=== PATIENT | male | born 1980 | race Caucasian/White ===

== ENCOUNTER → 2021-02-17 | Outpatient (CLI) | payer OTHER ==
--- NOTE | 2021-02-17 10:15 | Diagnostic Imaging Report ---
INDICATION: Low back pain. TIME OF EXAM: 10:07 a.m. Three views of the lumbar spine were obtained. Curvature and alignment is normal. Vertebral body heights and disc spaces are well-maintained. No fracture or subluxation is identified. IMPRESSION: No acute bony abnormality is detected. Dictated by: Dictated on workstation # [id number]
--- NOTE | 2021-02-17 10:39 | Diagnostic Imaging Report ---
Indication: Bilateral foot pain. TIME OF EXAM: 10:10 AM 2 views of each foot were obtained. Metatarsals and phalanges appear to be intact. Midfoot and hindfoot are unremarkable. No fractures are seen. No stress reaction is identified. IMPRESSION: No acute abnormalities detected. Dictated by: Dictated on workstation # [id number]
== END ==
LOC: RAD 09:17
PROVIDERS: ATTEND Family Medicine
DX: Z02.71 Encounter for disability determination (principal); M54.5 Low back pain; M79.672 Pain in left foot; M79.671 Pain in right foot
CPT/HCPCS: 72100